=== PATIENT | female | born 1965 | race African-American/Black ===

== ENCOUNTER 2016-11-05 17:56 | Emergency (ER) | payer OTHER ==
--- NOTE | ~2016-11-05 | CR181 ---
[facility] A Service of [facility] RADIOLOGY TEXT RESULTS PATIENT: LULU JAVIER LOCATION: SED : 63 UNIT #: [id number] AGE: [address]: Jayshree Martins SEX: F ORDER DR: [id number] [address] [address] [id number] MR#: [id number] Acc #: [id number] NAME: LULU JAVIER : 1965 SEX: F STUDY DATE/TIME: 11/05/2016 18:23 UNIT: SED ROOM: STUDY DESCRIPTION: CR Lumbar Spine 2 or 3 Views Attending Physician: Jayshree Martins Pa-C Referring Physician: Jayshree Martins Pa-C Ordering Physician: Jayshree Martins Pa-C Primary Care Physician: Primary Care Physician No MEDICAL IMAGING REPORT This report is preliminary unless electronic signature is present. EXAM Lumbar spine 3 views HISTORY Low back pain for 2 weeks. FINDINGS 3 views of the lumbar spine demonstrate moderate mid-right lumbar curve. Degenerative disc disease and severe disc space narrowing at L3-4 and ajip-[id number] disc space narrowing at the remainder of the lumbar levels. No fracture or subluxation. IMPRESSION 1. No acute findings. 2. Degenerative changes in the lumbar spine including severe degenerative disc space narrowing at L3-4. Moderate mid-right lumbar curve. Dictated by... John Rangel M.D. THIS IS AN ELECTRONICALLY VERIFIED REPORT John Rangel M.D. at 11/06/2016 2:40 PM SHRUTHI/marvin TD: 11/06/2016 09:11 JOB #: [id number] MEDICAL IMAGING REPORT Page 1 of 1
[2016-11-05] MEDS ORDERED: NAPROXEN (18:16)
[2016-11-05] MEDS ORDERED: LISINOPRIL (18:16)
[2016-11-05] MEDS ORDERED: LEXAPRO (18:17)
[2016-11-05] MEDS ORDERED: AZOR 10-20 MG1 EACH (18:17)
[2016-11-05] MEDS ORDERED: LIPITOR (18:17)
[2016-11-05] MEDS ORDERED: METFORMIN (18:17)
[2016-11-05] MEDS ORDERED: PRILOSEC (18:18)
[2016-11-05] MEDS ORDERED: DURLAZA162.5 MG (18:18)
[2016-11-05] MEDS ORDERED: ALLERGY10 M1 (18:18)
== END 2016-11-05 19:14 | disposition home or self-care (01) ==
LOC: SED 17:56
DX: M54.5 Low back pain (principal); E11.9 Type 2 diabetes mellitus without complications; I10 Essential (primary) hypertension
CPT/HCPCS: 72100; 96372; 99283; J1030; J1885